=== PATIENT | male | born 1985 | race Hispanic/Latino ===

== ENCOUNTER 2017-11-21 18:31 | Emergency (ER) | payer OTHER ==
[2017-11-21] MEDS ORDERED: TDAP Vaccine 0.5 mL Syr IM ONE (19:02)
--- NOTE | 2017-11-21 19:02 | ED PDOC ---
Arrival/HPI - General Chief Complaint: Upper Extremity Problem/Injury Time Seen by Provider: 11/21/17 19:01 Historian: Patient - History of Present Illness Narrative History of Present Illness (Text): 11/21/17 19:01 This 32 yo male who denies PMH presents to this ED c/o left index finger puncture wound x 3 hours. Patient stated while using a driller, he accidentally puncture his finger with drill bit. Patient feels mild numbness of tip of finger. Patient does not recall last tetanus. Finger has FROM. Patient denies other complains. Time/Duration: 1-3 hours Context: Work Past Medical History - Provider Review Nursing Documentation Reviewed: Yes - Infectious Disease Hx of Infectious Diseases: None - Psychiatric Hx Substance Use: No - Surgical History Hx Orthopedic Surgery: Yes - Anesthesia Hx Anesthesia: Yes Hx Anesthesia Reactions: No Family/Social History - Physician Review Nursing Documentation Reviewed: Yes Family/Social History: Other (noncontributory) Smoking Status: Unknown If Ever Smoked Hx Alcohol Use: No Hx Substance Use: No Allergies/Home Meds Allergies/Adverse Reactions: Allergies pollen extracts Allergy (Verified 11/21/17 18:51) CONGESTION Home Medications: Home Meds Medication Instructions Recorded Confirmed Colloidal Oatmeal [Eczema Relief] 0 gm TP PRN 11/21/17 11/21/17 Review of Systems - Review of Systems Constitutional: Normal. absent: Fatigue, Weight Change, Fevers Eyes: Normal ENT: Normal Respiratory: Normal Cardiovascular: Normal Gastrointestinal: Normal Genitourinary Male: Normal Musculoskeletal: Other ((+) left index finger puncture wound) Skin: Normal Neurological: Normal Endocrine: Normal Hemo/Lymphatic: Normal Psychiatric: Normal Physical Exam Vital Signs Temp Pulse Resp BP Pulse Ox 11/21/17 21:25 98 F 68 19 120/70 100 11/21/17 20:19 71 18 130/75 99 11/21/17 18:47 98.5 F 66 18 135/81 98 Temperature: Afebrile Blood Pressure: Normal Pulse: Regular Respiratory Rate: Normal Appearance: Positive for: Well-Appearing, Non-Toxic, Comfortable Pain Distress: None Mental Status: Positive for: Alert and Oriented X 3 - Systems Exam Head: Present: Atraumatic, Normocephalic Pupils: Present: PERRL Extroacular Muscles: Present: EOMI Conjunctiva: Present: Normal Mouth: Present: Moist Mucous Membranes Neck: Present: Normal Range of Motion Upper Extremity: Present: Normal ROM, NORMAL PULSES, Neurovascularly Intact, Capillary Refill < 2s, Other ((+) 4 mm puncture wound left index finger, palmar aspect). No: Cyanosis, Edema Lower Extremity: Present: Normal Inspection, NORMAL PULSES, Normal ROM. No: Edema, CALF TENDERNESS Neurological: Present: GCS=15, CN II-XII Intact, Speech Normal, Motor Func Grossly Intact, Normal Sensory Function, Normal Cerebellar Funct, Gait Normal, Memory Normal Skin: Present: Warm, Dry, Normal Color. No: Rashes Psychiatric: Present: Alert, Oriented x 3, Normal Insight, Normal Concentration Medical Decision Making ED Course and Treatment: 11/21/17 21:14 Re-evaluation. Patient feels better. Discussed results and plan with patient who expresses understanding. All questions answered and there is agreement with the plan to discharge home with instructions. Patient stable for discharge. Return if symptoms persist or worsen. FB from wound was removed. Re-evaluation Time: 21:14 Reassessment Condition: Re-examined, Improved - RAD Interpretation Narrative RAD Interpretations (Text): 11/21/17 21:14 X-rays shows FB was removed from left 2nd digit wound. Radiology Orders: 11/21/17 19:02 HAND LEFT 2ND DIGIT (FINGER) [RAD] Stat 11/21/17 20:32 HAND LEFT 2ND DIGIT (FINGER) [RAD] Stat - Medication Orders Current Medication Orders: Discontinued Medications Cephalexin Monohydrate (Keflex) 500 mg PO STAT STA PRN Reason: Protocol Stop: 11/21/17 21:14 Last Admin: 11/21/17 21:21 Dose: 500 mg Tetanus/Reduced Diphtheria/Acell Pertussis (Boostrix Vaccine Inj) 0.5 ml IM .ONCE ONE Stop: 11/21/17 19:03 Last Admin: 11/21/17 19:15 Dose: 0.5 ml [facility] Immunization Data Document 11/21/17 19:15 DOV (Rec: 11/21/17 19:16 DOV [id number]) Immunization Data Vaccine Information Sheet Given Yes Disposition/Present on Arrival - Present on Arrival Any Indicators Present on Arrival: No History of DVT/PE: No History of Uncontrolled Diabetes: No Urinary Catheter: No History of Decub. 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 You may also need to see your primary care doctor for revaluation. Clean wound daily with soap and water only, and apply OTC Neosporin ointment. take medication as instructed with food. return to emergency if wound becomes infected. Prescriptions: Cephalexin [Keflex] 500 mg PO QID #28 capsule Referrals: [facility] Ashley Lujan, [Non-Staff] - Follow up with primary Seman,William Simental MD [Medical Doctor] - Follow up with primary Forms: [employer] ([place]an), WORK NOTE
[2017-11-21 21:26] VITALS: BP 120/70; PULSE 68; RESP 19; TEMP 98; O2SAT 100
--- NOTE | 2017-11-22 09:31 | RAD ---
PROCEDURE: Left Index finger radiographs. HISTORY: pain s/p puncture wound COMPARISON: None. TECHNIQUE: AP radiograph of the left hand, as well as spot oblique and lateral images of index finger were obtained. FINDINGS: LEFT INDEX FINGER: No fracture identified. Soft tissue injury. Remainder of the left hand (as seen on the AP view) grossly intact. JOINTS: Normal. SOFT TISSUES: Normal. OTHER FINDINGS: None. IMPRESSION: No acute osseous finding. Soft tissue swelling at site of laceration associated with tiny foreign body
--- NOTE | 2017-11-22 09:53 | RAD ---
PROCEDURE: Left Index finger radiographs. HISTORY: r/o FB COMPARISON: November 21, 2017. Time of the most recent examination: 19:24 TECHNIQUE: AP radiograph of the left hand, as well as spot oblique and lateral images of index finger were obtained. FINDINGS: LEFT INDEX FINGER: Normal left index finger, without fracture or focal lesion. Remainder of the left hand (as seen on the AP view) grossly intact. JOINTS: Normal. SOFT TISSUES: Soft tissue injury. Status post Retrieval of foreign body identified on the prior study. OTHER FINDINGS: None. IMPRESSION: Soft tissue swelling without acute articular or osseous abnormality. No visulaized radiopaque/visualized foreign body. Concordant results with the preliminary interpretation rendered by the emergency department physician procedure.
== END 2017-11-21 21:25 | disposition home or self-care (01) ==
LOC: ED 18:31
DX: S61.231A Puncture wound without foreign body of left index finger without damage to nail, initial encounter (principal); S60.451A Superficial foreign body of left index finger, initial encounter; W31.89XA Contact with other specified machinery, initial encounter; Y92.89 Other specified places as the place of occurrence of the external cause; Y99.0 Civilian activity done for income or pay; Z23 Encounter for immunization